=== PATIENT | female | born 1945 | race Caucasian/White ===

== ENCOUNTER 2025-01-17 14:20 | Inpatient (IN) | payer OTHER ==
[~2025-01-17] VITALS: Ht 165.1 cm; Wt 64.9 kg
[~2025-01-17 14:20] MED LIST: AMANTADINE HCL100 M2 PO; AMITRIPTYLINE25 MG PO; B12100 MC1 PO; CARDIZEM LA300 MG PO; ELIQUIS5 M1 PO; FUROSEMIDE20 M1 PO; GABAPENTIN100 M2 PO; OXYCODONE HCL5 MG PO; POTASSIUM CHLO10 ME5 PO; PREVNAR 20 SYR0.5 ML IM; PROTONIX40 MG PO; RYTARY ER 61.21 EACH PO; SYNTHROID,LEVO88 MCG PO; Sinemet Cr 25-11 TAB PO; TRIHEXYPHEN2 MG/5 ML PO; TYLENOL325 M2 PO; VITAMIN B12500 MC2 PO; VITAMIN D1000 IU PO
[2025-01-17] MEDS ORDERED: LORazepam 0.5 MG TAB SL PRN (14:35)
[2025-01-17] MEDS ORDERED: BISACODYL 10 MG SUPP R PRN (14:35)
[2025-01-17] MEDS ORDERED: Morphine Sulfate 10 MG/0.5 ML CONCENTRATE ORAL SYRINGE SL PRN (14:35)
[2025-01-17] MEDS ORDERED: ATROPINE SULFATE 1% 2 ML BOTTLE SL PRN (14:40)
[2025-01-17 20:00] VITALS: BP 143/98
[2025-01-18 08:00] VITALS: BP 113/67
[2025-01-18 16:00] VITALS: BP 85/61
[2025-01-18] MEDS ORDERED: Morphine Sulfate 10 MG/0.5 ML CONCENTRATE ORAL SYRINGE SL SCH (18:00)
[2025-01-18 20:00] VITALS: BP 114/84
[2025-01-19 08:00] VITALS: BP 90/54
[2025-01-19 16:00] VITALS: BP 98/51
[2025-01-20 08:00] VITALS: BP 57/36
[2025-01-20] MEDS ORDERED: Morphine Sulfate 10 MG/0.5 ML CONCENTRATE ORAL SYRINGE SL SCH (09:00)
[2025-01-20 16:00] VITALS: BP 41/25
== END 2025-01-20 18:01 | DRG 179 ==
LOC: 5E 14:20
PROVIDERS: ADMIT Internal Medicine; ATTEND Internal Medicine
DX: J69.0 Pneumonitis due to inhalation of food and vomit (principal); G20.A1 Parkinson's disease without dyskinesia, without mention of fluctuations; Z66 Do not resuscitate; Z51.5 Encounter for palliative care